=== PATIENT | female | born 1990 | race Caucasian/White ===

== ENCOUNTER → 2023-09-29 09:15 | Outpatient (REF) | payer BC, SELFPAY | LOC: WDC 09:15 | PROVIDERS: ATTENDING PHYSICIAN Advanced Practice Midwife | DX: N63.13 Unspecified lump in the right breast, lower outer quadrant (principal) | CPT/HCPCS: 76642; 77062; 77066 ==

== ENCOUNTER → 2024-09-13 10:17 | Outpatient (REF) | payer BC, SELFPAY | LOC: HWRAD 10:17 | PROVIDERS: ATTENDING PHYSICIAN Student in an Organized Health Care Education/Training Program; REFERRING PHYSICIAN Obstetrics & Gynecology | DX: R14.0 Abdominal distension (gaseous) (principal); N92.6 Irregular menstruation, unspecified; L68.9 Hypertrichosis, unspecified; R53.83 Other fatigue; Z86.39 Personal history of other endocrine, nutritional and metabolic disease | CPT/HCPCS: 76830; 76856 ==